=== PATIENT | male | born 1985 | race Caucasian/White ===

== ENCOUNTER → 2017-03-22 | Outpatient (CLI) | payer BC, OTHER ==
--- NOTE | 2017-03-22 09:42 | REP ---
Clinical: Bilateral testicular pain. Technique: Real time almanzar scale and color Doppler evaluation using linear high frequency transducer. Findings: The right testicle has a somewhat heterogeneous asymmetric echotexture while the left testicle has a normal homogeneous echotexture. The bilateral epididymi are normal in vascularity to the bilateral testicles and epididymi are symmetric. There is no evidence for intratesticular mass lesion, acute infectious/inflammatory process, or torsion. No hydroceles. Bilateral varicoceles are identified measuring up to 4 mm on the right and 4.7 mm on the left. Right testicle measures 5.7 x 2.8 x 3.4 cm. Left testicle measures 4.9 x 2.6 x 3.4 cm. Impression: 1. Somewhat asymmetric heterogeneous echotexture to the right testicle with otherwise normal vascularity and no evidence for mass or acute process. Findings may reflect prior insult. 2. Mild bilateral varicoceles (left greater than right). 3. No hydroceles. Signed by Jono Klein MD 03/22/2017 08:35 A
== END ==
LOC: M RAD 07:52
PROVIDERS: ATTEND Specialist
DX: N50.811 Right testicular pain (principal)